=== PATIENT | male | born 1950 | race African-American/Black ===

== ENCOUNTER 2017-07-27 16:30 | Emergency (ER) | payer OTHER ==
[~2017-07-27] VITALS: Ht 190.5 cm; Wt 106.6 kg
[~2017-07-27 16:30] MED LIST: AFRIN MENTHOL S15 ML NS; ASPIRIN EC81 M1 PO; CIPRO250 M1 PO; FISH OIL 1,0001 EAC5 PO; MULTIVITAMINS PO
[2017-07-27 17:46] VITALS: BP 116/79
== END 2017-07-27 17:47 | disposition home or self-care (01) ==
LOC: ER 16:30
DX: S61.011A Laceration without foreign body of right thumb without damage to nail, initial encounter (principal); E78.00 Pure hypercholesterolemia, unspecified; W26.0XXA Contact with knife, initial encounter; Y93.89 Activity, other specified; Y92.89 Other specified places as the place of occurrence of the external cause; Y99.8 Other external cause status

== ENCOUNTER 2020-09-30 14:28 | Emergency (ER) | payer OTHER ==
[~2020-09-30] VITALS: Ht 190.5 cm; Wt 103.0 kg
[2020-09-30 15:15] VITALS: BP 150/84
== END 2020-09-30 15:18 | disposition home or self-care (01) ==
LOC: ER 14:28
DX: S61.512A Laceration without foreign body of left wrist, initial encounter (principal); E78.5 Hyperlipidemia, unspecified; Z79.899 Other long term (current) drug therapy; W26.8XXA Contact with other sharp object(s), not elsewhere classified, initial encounter; Y93.89 Activity, other specified; Y92.89 Other specified places as the place of occurrence of the external cause; Y99.0 Civilian activity done for income or pay